=== PATIENT | female | born 1965 | race Caucasian/White ===

== ENCOUNTER 2021-11-13 07:26 | Outpatient (REF) | payer MEDICAID, SELFPAY ==
[2021-11-13 08:00] LABS: MANUAL DIFF FLAG NO
[2021-11-13 08:44] LABS: Basophils Percent Auto 0.6 % (0-2); Eosinophils Absolute Auto 0.1 X10*3/uL (0.0-0.4); Hematocrit 40.4 % (37.0-47.0); Hemoglobin 13.2 g/dl (12.0-16.0); Imm Gran Abs Auto 0.02 X10*3/uL (0.00-0.03); Imm Gran Pct Auto 0.3 % (0.0-0.4); Lymphocytes Absolute Auto 1.9 X10*3/uL (1.2-4.9); Lymphocytes Percent Auto 27.3 % (20-40); Mean Corpuscular HGB Conc 32.7 g/dl (31.0-35.0); Mean Corpuscular Hemoglobin 27.8 pg (27.0-33.0); Mean Corpuscular Volume 85.2 fL (80.0-98.0); Monocytes Absolute Auto 0.6 X10*3/uL (0.1-1.2); Monocytes Percent Auto 7.9 % (2-11); Neutrophils Absolute Auto 4.4 x10*3/uL (2.0-8.3); Neutrophils Percent Auto 61.9 % (45-73); Platelet Count 284 X10*3/uL (160-400); Red Blood Count 4.74 X10*6/uL (4.20-5.50); Red Cell Distribution Width 13.5 % (11.0-16.0); White Blood Count 7.1 X10*3/uL (4.8-10.8)
[2021-11-13 09:02] LABS: Estimated Average Glucose 186 mg/dL; Hemoglobin A1c % 8.1 %
[2021-11-13 09:08] LABS: Alanine Aminotransferase 34 U/L (0-31); Albumin Level 3.9 g/dL (3.5-5.0); Alkaline Phosphatase 92 U/L (39-117); Anion Gap 15 (12-20); Aspartate Amino Transferase 15 U/L (5-31); Bilirubin Direct 0.2 mg/dL (0.0-0.5); Bilirubin Total 0.6 mg/dL (0.0-1.0); Blood Urea Nitrogen 17 mg/dL (9-16); Carbon Dioxide 25 mmol/L (22-29); Chloride 104 mmol/L (96-108); Cholesterol 153 mg/dL; Estimated Glomerular Filt Rate > 60; Glucose Random 174 mg/dL (60-115); HDL Cholesterol 49 mg/dL; LDL Cholesterol Calculated 89 mg/dl; Potassium 4.6 mmol/L (3.3-5.1); Sodium 139 mmol/L (135-145); Total Protein 7.2 g/dL (6.5-8.0); Triglycerides 77 mg/dL
[2021-11-13 09:30] LABS: Free T4 (Free Thyroxine) 0.93 ng/dL (0.71-1.85); Thyroid Stimulating Hormone 3.18 uIU/mL (0.32-4.0); Vitamin D 25-OH Total 19.4 ng/mL (>30)
[2021-11-13 11:10] LABS: Creatinine Urine 166.59 mg/dL; Microalbum/Creatinine Ratio Ur 6.6 ug/mg cr
[2021-11-13 12:03] LABS: CT PCR NOT DETECTED (Not Detect.); NG PCR NOT DETECTED (Not Detect.)
[2021-11-15 07:44] LABS: Syphilis Screen Nonreactive (Nonreactive)
[2021-11-15 07:51] LABS: HIV AB/AG Nonreactive (Nonreactive); HIV Num 1 0.06 S/CO (0.00-0.99); ~HepC Num1 0.13 S/CO (0.00-0.79); ~Hepatitis C Antibody Nonreactive (Nonreactive)
== END 2021-11-13 07:27 | disposition home or self-care (01) ==
LOC: HO.LAB 07:26
PROVIDERS: PCP Family Medicine; Visit Provider Family Medicine
DX: Z00.00 Encounter for general adult medical examination without abnormal findings (principal); E11.9 Type 2 diabetes mellitus without complications; E78.5 Hyperlipidemia, unspecified; I10 Essential (primary) hypertension
CPT/HCPCS: 80048; 80061; 80076; 82043; 82306; 83036; 84439; 84443; 85025; 86780; 86803; 87389; 87491; 87591

== ENCOUNTER → 2021-11-24 14:45 | Outpatient (BNVA) | payer MEDICAID, SELFPAY | PROVIDERS: PCP Family Medicine; Visit Provider Surgery | DX: D17.24 Benign lipomatous neoplasm of skin and subcutaneous tissue of left leg (principal) | CPT/HCPCS: 99202 ==

== ENCOUNTER 2021-12-07 09:32 | Day surgery (SDC) | payer MEDICAID, SELFPAY ==
[2021-12-02 11:03] VITALS: BMI 33.8
--- NOTE | 2021-12-06 09:41 | P.CONAN_ITS ---
Documented by User: Malissa Gabriel NP 12/06/21 09:43 HPI - Anesthesia Eval Consult details Narrative: 56yo F for Left Excision Lipoma thigh PMFSH Active Problems Active Problems: All Active Problems (Updated 11/24/21 @ 15:17 by Zechariah Howard MD) Lipoma of left thigh (Acute) Hypertension (Acute) Diabetes mellitus (Acute) Past Medical History Medical History Diabetes mellitus Hypertension Lipoma of left thigh Family History Family History Other Diabetes mellitus Surgical History Surgical History H/O wrist surgery Social History Social History Alcohol intake: current Alcohol intake frequency: holidays/special occasions only Patient Tobacco Use Status: Former Tobacco user Tobacco use type: Cigarette Years Smoked: 3 Smoked in Last 30 Days: No Use of substances other than those prescribed or required for medical reasons: No Are you DNR?: No Advance Directives: No Advance Directives Information Provided: Yes Meds Allergies Allergy/AdvReac Type Severity Reaction Status Date / Time No Known Allergies Allergy Unverified 11/24/21 14:53 Home Medications Medication Instructions Recorded Confirmed Last Taken Type alcohol swabs (Alcohol Prep Pads) 1 pad topical QID diabetes mellitus 11/24/21 12/07/21 Unknown History blood sugar diagnostic (FreeStyle #10 ea 11/24/21 11/24/21 Unknown History Lite Strips) cholecalciferol (vitamin D3) 50 50 mcg PO DAILY 11/24/21 12/07/21 Unknown History mcg (2,000 unit) capsule dulaglutide 1.5 mg/0.5 mL 1.5 mg subcut QWEEK 11/24/21 12/07/21 12/05/21 History subcutaneous pen injector (Trulicity) famotidine 20 mg tablet 20 mg PO NEEDED PRN Acid Reflux 11/24/21 12/07/21 Unk nown History fluticasone propionate 50 2 spray intranasal DAILY 11/24/21 12/07/21 Unknown History mcg/actuation nasal spray,suspension insulin glargine 100 unit/mL (3 18 unit subcut QAM 11/24/21 12/07/21 12/06/21 07:00 History mL) subcutaneous pen (Lantus Solostar U-100 Insulin) lancets 28 gauge (FreeStyle #100 ea 11/24/21 11/24/21 Unknown History Lancets) lisinopril 10 mg tablet 10 mg PO DAILY 11/24/21 12/07/21 Unknown History pen needle, diabetic 32 gauge x #50 ea 11/24/21 11/24/21 Unknown History (BD Floresita 2nd Gen Pen Needle) rosuvastatin 5 mg tablet 5 mg PO DAILY 11/24/21 12/07/21 Unknown History Exam Exam Date and Time: December 06, [id number] Height,Weight and Vital Signs: Height 5 ft 3 in Weight 86.636 kg Pertinent Lab Results Pertinent Lab Results: Laboratory Tests 11/13/21 11/13/21 07:54 07:54 WBC 7.1 Hgb 13.2 Hct 40.4 Plt Count 284 Sodium 139 Potassium 4.6 Chloride 104 Carbon Dioxide 25 BUN 17 H Creatinine 0.83 Assessment and Plan Assessment Anesthesia Assessment: Chart Reviewed Documented by User: Yareli Sapp MD 12/07/21 12:52 [facility] Past Medical History Medical History Diabetes mellitus Hypertension Lipoma of left thigh Family History Family History Other Diabetes mellitus Surgical History Surgical History H/O wrist surgery History of Problems with Anesthesia: No Social History Social History Alcohol intake: current Alcohol intake frequency: holidays/special occasions only Patient Tobacco Use Status: Former Tobacco user Tobacco use type: Cigarette Years Smoked: 3 Smoked in Last 30 Days: No Use of substances other than those prescribed or required for medical reasons: No Are you DNR?: No Advance Directives: No Advance Directives Information Provided: Yes Meds Allergies Allergy/AdvReac Type Severity Reaction Status Date / Time No Known Allergies Allergy Unverified 11/24/21 14:53 Home Medications Medication Instructions Recorded Confirmed Last Taken Type alcohol swabs (Alcohol Prep Pads) 1 pad topical QID diabetes mellitus 11/24/21 12/07/21 Unknown History blood sugar diagnostic (FreeStyle #10 ea 11/24/21 11/24/21 Unknown History Lite Strips) cholecalciferol (vitamin D3) 50 50 mcg PO DAILY 11/24/21 12/07/21 Unknown History mcg (2,000 unit) capsule dulaglutide 1.5 mg/0.5 mL 1.5 mg subcut QWEEK 11/24/21 12/07/21 12/05/21 History subcutaneous pen injector (Trulicity) famotidine 20 mg tablet 20 mg PO NEEDED PRN Acid Reflux 11/24/21 12/07/21 Unknown History fluticasone propionate 50 2 spray intranasal DAILY 11/24/21 12/07/21 Unknown History mcg/actuation nasal spray,suspension insulin glargine 100 unit/mL (3 18 unit subcut QAM 11/24/21 12/07/21 12/06/21 07:00 History mL) subcutaneous pen (Lantus Solostar U-100 Insulin) lancets 28 gauge (FreeStyle #100 ea 11/24/21 11/24/21 Unknown History Lancets) lisinopril 10 mg tablet 10 mg PO DAILY 11/24/21 12/07/21 Unknown History pen needle, diabetic 32 gauge x #50 ea 11/24/21 11/24/21 Unknown History (BD Floresita 2nd Gen Pen Needle) rosuvastatin 5 mg tablet 5 mg PO DAILY 11/24/21 12/07/21 Unknown History Exam Airway Mallampati Class: II TM Dist: >3cm Neck ROM: Full Loose/Missing/Broken Teeth: No Heart: RRR Lungs: CTA Assessment and Plan Assessment Anesthesia Assessment: Anesthesia Plan Discussed Final Anesthetic Review History of Problems with Anesthesia: No NPO: Yes ASA Class: II Final Preanesthetic Review: Meds/Allgs Chart Reviewed, Consent Obtained/Reviewed and Anes Risks/Benef Reviewed Patient Risk: Low Procedure Risk: Low Anesthetic Plan Anesthetic Plan: GA Disposition: Standard PACU
[2021-12-07] VITALS (8 sets, daily range): BP systolic 87–159; BP diastolic 56–88; PULSE 98–103; RESP 16–20; TEMP 36.2–36.4; O2SAT 93–98; BMI 33.6
[2021-12-07 10:04] LABS: Glucose, Whole Blood 136 mg/dL (60-115)
[2021-12-07] MEDS: Lactated Ringers 1,000 ML 100 ML IVCONT (10:21)
--- NOTE | 2021-12-07 13:16 | MHC.SHP ---
Pre-Procedural Eval Section A Date of Service: 12/07/21 The patient is an INPATIENT: No Changes since office visit: No Cold of Flu in the past 2 weeks, No New Medical Problems, No Changes in Medication and No Patient answered all questions The History & Physical has been completed within 30 days and I have reviewed it.: Yes Section B Chief Complaint: Benign lipomatous neoplasm of skin and subcutaneou Allergies: Allergies Allergy/AdvReac Type Severity Reaction Status Date / Time No Known Allergies Allergy Unverified 11/24/21 14:53 Plan I have reviewed the history and physical and performed a pertinent physical examination on my patient. No changes have occurred unless specified.
--- NOTE | 2021-12-07 14:04 | W.PM.OPN ---
Operative Note Operative Note Date of Service: 12/07/21 Narrative: Preop diagnosis: Lipoma, left medial thigh Postop diagnosis: The same Procedure: Excision of lipoma, left medial thigh under anesthesia Surgeon: Zechariah Howard MD internal medicine physician assistant: LACI Nguyen The patient is a 56-year-old female who wanted a lipoma on the left medial thigh removed. She says that this has been bothering her because of increase in size and discomfort whenever she is ambulating. She has this vague lipomatous mass on the left medial thigh, about initially about 6-7 cm in size. She understood technique of excision under anesthesia and she was aware of the risks, benefits, and alternatives. She was brought to the operating room placed in supine position with left like abduct that expose the medial aspect of the thigh. She was under general anesthesia via laryngeal mask airway. The area of the lipomas prepped and draped in the usual sterile fashion. A surgical time-out was done. I infiltrated the planned line of incision with lidocaine 1%. I made the incision using blade 15 and this was carried down through the full-thickness of the skin and subcutaneous fat using electrocautery until I saw what appeared to be lipomatous tissue. Sharply dissected this lipomatous tissue off the rest of the subcutaneous layer. These margins were not well-defined. I sent this lipomatous tissue as specimen. The lipoma actually measured more about close to 5 cm in diameter. I irrigated the area of excision. I reapposed the subcutaneous layer with Dexon 3-0 interrupted sutures. Skin closure was achieved with Dexon 4-0 subcuticular running stitch. I infiltrated the area with Marcaine 0.5% for postop analgesia. Dressings were applied and the procedure was completed. The patient tolerated procedure well. There were no immediate complications. Initial and final counts of sponges and instruments were correct. Estimated blood loss about 10 cc The patient was extubated without difficulty and transferred to the recovery room with stable vital signs.
[2021-12-07] MEDS: Acetaminophen 325 MG TABLET 650 MG PO (15:20)
== END 2021-12-07 16:00 | disposition home or self-care (01) ==
PROVIDERS: PCP Family Medicine; Visit Provider Surgery
PROC: (CPT 27337; principal; 2021-12-07 11:30)
DX: D17.24 Benign lipomatous neoplasm of skin and subcutaneous tissue of left leg (principal); E11.9 Type 2 diabetes mellitus without complications; I10 Essential (primary) hypertension; Z79.4 Long term (current) use of insulin; Z79.899 Other long term (current) drug therapy; Z87.891 Personal history of nicotine dependence
CPT/HCPCS: 27337; 82947; 88304; J0690; J1170; J2250; J2795; J3010

== ENCOUNTER 2022-03-25 09:54 | Outpatient (REF) | payer MEDICAID, SELFPAY ==
--- NOTE | ~2022-03-25 | US_ITS ---
EXAMINATION: US ABDOMEN COMPLETE CLINICAL INFORMATION: Epigastric pain. COMPARISON: None TECHNIQUE: Real-time imaging of the abdominal viscera. FINDINGS: PANCREAS: Normal. ABDOMINAL AORTA: The proximal, mid, and distal segments are normal in caliber. INFERIOR VENA CAVA: Visualized portions are normal. LIVER: The liver is normal in size. The liver contour is normal. There is diffuse increased liver parenchymal echogenicity, consistent with hepatic steatosis. No focal hepatic lesion. There is no intrahepatic biliary duct dilatation seen. GALLBLADDER: The gallbladder is physiologically distended. A few large gallstones are present measuring about 1.6 cm. No evidence of gallbladder wall thickening or pericholecystic fluid. COMMON BILE DUCT: Normal in caliber measuring 0.3 cm in diameter. RIGHT KIDNEY: No hydronephrosis or renal calculi. The kidney measures 10.8 cm in maximum dimension. There is a right lower pole 1 cm benign Bosniak class I cyst which needs no additional imaging or follow-up. No solid renal masses. LEFT KIDNEY: Normal. No hydronephrosis. No renal calculi or focal parenchymal lesions. The kidney measures 10.1 cm in maximum dimension. SPLEEN: Normal. The spleen measures 8.6 cm in maximum dimension. FREE FLUID: None. US/US abdomen complete IMPRESSION: 1. Cholelithiasis without evidence of cholecystitis. 2. Hepatic steatosis.
== END 2022-03-25 09:55 | disposition home or self-care (01) ==
LOC: HO.US 09:54
PROVIDERS: PCP Family Medicine; Visit Provider Family Medicine
DX: R10.13 Epigastric pain (principal)
CPT/HCPCS: 76700

== ENCOUNTER → 2022-05-23 10:54 | Outpatient (BNVA) | payer OTHER, MEDICAID, SELFPAY | PROVIDERS: PCP Family Medicine; Visit Provider Surgery | DX: K80.20 Calculus of gallbladder without cholecystitis without obstruction (principal) | CPT/HCPCS: 99212 ==

== ENCOUNTER 2022-06-04 10:39 | Outpatient (REF) | payer OTHER, MEDICAID, SELFPAY ==
[2022-06-04 10:53] LABS: MANUAL DIFF FLAG NO
[2022-06-04 11:30] LABS: Basophils Absolute Auto 0.1 X10*3/uL (0.0-0.2); Basophils Percent Auto 0.7 % (0-2); Eosinophils Absolute Auto 0.1 X10*3/uL (0.0-0.4); Eosinophils Percent Auto 1.5 % (0-4); Hematocrit 42.1 % (37.0-47.0); Hemoglobin 13.5 g/dl (12.0-16.0); Imm Gran Abs Auto 0.02 X10*3/uL (0.00-0.03); Imm Gran Pct Auto 0.2 % (0.0-0.4); Lymphocytes Absolute Auto 2.1 X10*3/uL (1.2-4.9); Lymphocytes Percent Auto 25.7 % (20-40); Mean Corpuscular HGB Conc 32.1 g/dl (31.0-35.0); Mean Corpuscular Hemoglobin 26.9 pg (27.0-33.0); Mean Platelet Volume 10.4 fL (9.4-12.3); Monocytes Absolute Auto 0.6 X10*3/uL (0.1-1.2); Monocytes Percent Auto 7.1 % (2-11); Neutrophils Absolute Auto 5.2 x10*3/uL (2.0-8.3); Neutrophils Percent Auto 64.8 % (45-73); Platelet Count 289 X10*3/uL (160-400); Red Blood Count 5.01 X10*6/uL (4.20-5.50); Red Cell Distribution Width 13.2 % (11.0-16.0); White Blood Count 8.1 X10*3/uL (4.8-10.8)
== END 2022-06-04 10:40 | disposition home or self-care (01) ==
LOC: HO.LAB 10:39
PROVIDERS: PCP Family Medicine; Visit Provider Family Medicine
DX: R10.13 Epigastric pain (principal)
CPT/HCPCS: 36415; 85025

== ENCOUNTER 2022-07-25 07:46 | Outpatient (REF) | payer OTHER, MEDICAID, SELFPAY ==
--- NOTE | ~2022-07-25 | US_ITS ---
EXAMINATION: US ABDOMEN COMPLETE CLINICAL INFORMATION: Epigastric pain. COMPARISON: Ultrasound abdomen complete 03/25/2022. TECHNIQUE: Real-time imaging of the abdominal viscera. FINDINGS: PANCREAS: Visualized portions of pancreas are normal in appearance. ABDOMINAL AORTA: The proximal, mid, and distal segments are normal in caliber. INFERIOR VENA CAVA: Visualized portions are normal. LIVER: The liver is normal in size. The liver contour is normal. Liver echogenicity is increased diffusely. No focal hepatic lesion. There is no intrahepatic biliary duct dilatation seen. GALLBLADDER: The gallbladder is physiologically distended. Several gallstones are noted. There is no gallbladder wall thickening or pericholecystic fluid appreciated. Negative sonographic Landis's sign. COMMON BILE DUCT: Normal in caliber measuring 0.6 cm in diameter. RIGHT KIDNEY: 1.2 cm simple appearing midpole cyst for which no follow-up imaging is usually warranted. No hydronephrosis or renal calculi. The kidney measures 11.0 cm in maximum dimension. LEFT KIDNEY: Normal. No hydronephrosis. No renal calculi or focal parenchymal lesions. The kidney measures 11.1 cm in maximum dimension. SPLEEN: Normal. The spleen measures 9.7 cm in maximum dimension. FREE FLUID: None. US/US abdomen complete IMPRESSION: 1. Cholelithiasis. No other sonographic evidence to suggest acute cholecystitis. 2. Diffusely increased liver echogenicity. This is a nonspecific finding but most suggestive of hepatic steatosis. Correlation with liver enzymes recommended.
== END 2022-07-25 07:47 | disposition home or self-care (01) ==
LOC: HO.US 07:46
PROVIDERS: PCP Family Medicine; Visit Provider Family Medicine
DX: R10.13 Epigastric pain (principal)
CPT/HCPCS: 76700

== ENCOUNTER 2022-08-18 13:09 | Outpatient (REF) | payer MEDICAID, SELFPAY ==
[2022-08-18 16:25] LABS: Alanine Aminotransferase 37 U/L (0-31); Albumin Level 4.3 g/dL (3.5-5.0); Alkaline Phosphatase 96 U/L (39-117); Anion Gap 13 (12-20); Aspartate Amino Transferase 22 U/L (5-31); Bilirubin Total 0.6 mg/dL (0.0-1.0); Blood Urea Nitrogen 17 mg/dL (9-16); Calcium 9.7 mg/dL (8.4-10.2); Carbon Dioxide 27 mmol/L (22-29); Chloride 105 mmol/L (96-108); Estimated Glomerular Filt Rate > 60; Glucose Random 115 mg/dL (60-115); Potassium 4.6 mmol/L (3.3-5.1); Sodium 140 mmol/L (135-145); Total Protein 7.7 g/dL (6.5-8.0)
[2022-08-19 12:25] LABS: H Pylori Breath Test Negative (Negative)
== END 2022-08-18 13:10 | disposition home or self-care (01) ==
LOC: HO.LAB 13:09
PROVIDERS: PCP Family Medicine; Referring Provider Family Medicine; Visit Provider Nurse Practitioner
DX: R10.10 Upper abdominal pain, unspecified (principal)
CPT/HCPCS: 36415; 80053; 83013; 99212

== ENCOUNTER → 2022-09-26 07:42 | Outpatient (REF) | payer MEDICAID, SELFPAY ==
--- NOTE | ~2022-09-26 | NM_ITS ---
EXAMINATION: BILIARY TRACT IMAGING STUDY WITH CCK CLINICAL INFORMATION: Upper abdominal pain, unspecified.. COMPARISON: Abdominal ultrasound done on 07/25/2022.. TECHNIQUE: Serial gamma scintillation camera images were obtained over the abdomen for a total observation period of 60 minutes following the intravenous administration of 5 mCi Tc-99m mebrofenin. FINDINGS: There is good concentration of activity in the liver by 5 minutes post injection. Biliary activity is visualized by 7 minutes. The gallbladder is well visualized by 15 minutes. Small bowel is well visualized by 15 minutes. At 60 minutes post radiopharmaceutical injection, a 30-minute infusion of 1.8 micrograms Sincalide was then begun and an additional 40 minutes of images were obtained. There is no emptying of the gallbladder. By the end of the study there is good clearance of activity from the liver and visualization of diffuse small bowel activity. The calculated gallbladder ejection fraction is 0% (normal gallbladder ejection fraction is greater than 35%). NM/NM hepatobiliary w pharm IMPRESSION: Visualization of the gallbladder is evidence of a patent cystic duct and strong evidence against the diagnosis of acute cholecystitis. The common bile duct is patent. Gallbladder emptying and ejection fraction are abnormal showing no evidence of any significant contraction/emptying at 30 minutes post CCK injection images. Liver function appears normal.
== END ==
LOC: HO.NUCMED 07:42
PROVIDERS: PCP Family Medicine; Visit Provider Nurse Practitioner
DX: R10.10 Upper abdominal pain, unspecified (principal)
CPT/HCPCS: 78227; A9537; J2805

== ENCOUNTER 2022-10-05 08:13 | Outpatient (AMB) | payer MEDICAID, SELFPAY ==
--- NOTE | 2022-10-05 08:16 | MHC.OFFVIS ---
Intake Intake Visit Reasons: 6 weeks f/u abd pain Allergies No Known Allergies Allergy (Verified 05/23/22 11:14) HPI 6 weeks f/u abd pain HPI Details Assessment & Plan (1) Gallstones: ?Code(s): K80.20 - Calculus of gallbladder without cholecystitis without obstruction ?Plan: Her problems started about a year ago with a feeling soreness that starts in the area under the ribs and then seems to spread to her right side somewhat along the path of the colon. However, she does have some days without the pain, but when it comes it can last all day. It will happen 2-3 weeks out o.? f the month. The pain is 2-3/10. She also has a change in her stools, her normal was twice a day formed but now she is having several BM's a day at times formed and at times loose. This seems post prandial. She has HB and burping. No N/V. The HB is worsening. Her mother has stomach problems but she does not know the dx - she just knows that her mother can't eat certain foods. NO known food allergies. It may have started after she had COVID - can't remember any medication changes or diet changes. THEN SHE REMEMBERS THAT SHE STARTED TRULICITY ABOUT THE SAME TIME. She takes something that starts with an S and is chewable. and this is what she takes for HB.? This is likely simethicone.? She also has famotidine. She has never had a colonoscopy and is resistant to this - but may need to consider if we need EGD and for CRC screening. She does not know if there is a FHX of CRC - will ask her mom. In the meantime because she has a history of gallstones will get a HIDA scan and an H pylori test. Return office visit in 6 weeks. (2) Upper abdominal pain: ?Code(s): R10.10 - Upper abdominal pain, unspecified ? ? ? Orders: Orders NM hepatobiliary w pharm 08/18/22 R10.10 - Upper abd ominal pain, unspe cified ? Comprehensive Met. Panel 08/18/22 R10.10 - Upper abd ominal pain, unspe cified ? H Pylori Breath Te st 08/19/22 R10.10 - Upper abd ominal pain, unspe cified ? LABS: Laboratory Tests 08/18/22 08/18/22 14:38 Unknown Estimated GFR > 60 Total Bilirubin 0.6 AST 22 ALT 37 H Alkaline Phosphata se 96 H. pylori Breath T est Negative . HIDA SCAN 09/26/22? FINDINGS: There is good concentration of activity in the liver by 5 minutes post injection. Biliary activity is visualized by 7 minutes. The gallbladder is well visualized by 15 minutes. Small bowel is well visualized by 15 minutes. At 60 minutes post radiopharmaceutical injection, a 30-minute infusion of 1.8 micrograms Sincalide was then begun and an additional 40 minutes of images were obtained. There is no emptying of the gallbladder. By the end of the study there is good clearance of activity from the liver and visualization of diffuse small bowel activity. The calculated gallbladder ejection fraction is 0% (normal gallbladder ejection fraction is greater than 35%). NM/NM hepatobiliary w pharm IMPRESSION: Visualization of the gallbladder is evidence of a patent cystic duct and strong evidence against the diagnosis of acute cholecystitis. The common bile duct is patent. Gallbladder emptying and ejection fraction are abnormal showing no evidence of any significant contraction/emptying at 30 minutes post CCK injection images. Liver function appears normal. ? . TODAY'S VISIT She is doing MUCH BETTER!! Only random diarrhea not daily and her stomach is not painful. She credits the Creon for her improvement which was dramatic assume that she started the medication. I educate her about biliary dyskinesia and that the medicine may work for quite a while but we may reach a point where she needs to have the gallbladder removed. We review alarm signs and symptoms that would necessitate an ER visit. For now she is extremely happy with her GI regimen and agreeable to calling me if things change. ROV 3 mos. [facility] Medical History (Updated 10/05/22 @ 09:15 by BETSY Acosta) Diabetes mellitus Gallstones Hypertension Lipoma of left thigh Surgical History H/O wrist surgery Status post excision of lipoma (~12/07/21) Family History Other Diabetes mellitus Social History Alcohol intake: current Alcohol intake frequency: holidays/special occasions only Patient Tobacco Use Status: Former Tobacco user Tobacco use type: Cigarette Years Smoked: 3 Review of Systems Const Denies fatigue, Denies fever(s), Denies night sweats, Denies poor appetite and Denies weight loss ENT Reports Normal hearing present, Denies dental pain, Denies dysphagia, Denies hearing loss, Denies mouth pain, Denies odynophagia, Denies throat swelling, Denies tongue swelling and Reports other (Dentition adequate) Card Reports no additional complaints Resp Reports no additional complaints GI Denies abdominal pain, Denies melena, Denies bloating, Denies hematochezia, Reports constipation, Denies GI cramping, Denies dysphagia, Denies excessive flatus, Denies early satiety, Reports heartburn, Reports diarrhea, Denies nausea, Denies odynophagia, Denies vomiting and Denies hematemesis Skin/Breast Denies pruritus, Denies lesions, Denies rash and Denies jaundice Neuro Reports Normal hearing present and Denies Abnormal speech present Endo Denies fatigue Aller/Immun Denies throat swelling and Denies tongue swelling Physical Exam Const General: cooperative, no acute distress, well developed and well groomed Nutritional Appearance: well nourished and overweight Orientation/consciousness: oriented to person, oriented to place and oriented to time Limitations: No language barrier HEENT Head: Yes normocephalic and Yes atraumatic Eyes General: appearance normal, both eyes and all related structures Pupils: Equal, round and reactive pupils present Neck Neck: Yes normal visual inspection and Yes no lymphadenopathy Thyroid: Thyroid normal Resp Effort & Inspection: normal respiratory effort and able to speak in complete sentences Auscultation: clear to auscultation bilaterally Cardio Rate: regular rate Rhythm: regular rhythm Heart sounds: Normal, physiologic split S2 sound present Peripheral pulses: radial pulses present and posterior tibial pulses present GI Inspection: No distended, No Abdominal panniculus present and Yes obesity Palpation (GI): Soft to palpation, nontender, no guarding, not rigid and No hepatosplenomegaly present Percussion: Yes normal to percussion Auscultation: normal bowel sounds Rectal Exam - Female: deferred Skin General skin exam: no rashes or lesions noted, turgor normal, skin not dry, no jaundice, No spider nevi and no striae Rashes: no rashes Nails: normal Neuro General: oriented to person, oriented to place and oriented to time Cranial nerves: Yes Equal, round and reactive pupils present and Yes Normal hearing present Speech: No Abnormal speech present Extrem General: Yes normal to inspection, No clubbing, No cyanosis and No edema Psych Appearance: grossly normal and well kempt Mental Status: mental status grossly normal Speech and movement: Normal speech and movement present Affect: normal affect Attitude: cooperative Thought process: Normal thought process present and not confabulating Thought content: Normal thought content present Insight: Limited insight present (Psych) Judgement: Limited judgement present (Psych) Results Reviewed Results Reviewed: Laboratory Tests 08/18/22 08/18/22 14:38 Unknown Estimated GFR > 60 Total Bilirubin 0.6 AST 22 ALT 37 H Alkaline Phosphatase 96 H. pylori Breath Test Negative . HIDA SCAN 09/26/22? FINDINGS: There is good concentration of activity in the liver by 5 minutes post injection. Biliary activity is visualized by 7 minutes. The gallbladder is well visualized by 15 minutes. Small bowel is well visualized by 15 minutes. At 60 minutes post radiopharmaceutical injection, a 30-minute infusion of 1.8 micrograms Sincalide was then begun and an additional 40 minutes of images were obtained. There is no emptying of the gallbladder. By the end of the study there is good clearance of activity from the liver and visualization of diffuse small bowel activity. The calculated gallbladder ejection fraction is 0% (normal gallbladder ejection fraction is greater than 35%). NM/NM hepatobiliary w pharm IMPRESSION: Visualization of the gallbladder is evidence of a patent cystic duct and strong evidence against the diagnosis of acute cholecystitis. The common bile duct is patent. Gallbladder emptying and ejection fraction are abnormal showing no evidence of any significant contraction/emptying at 30 minutes post CCK injection images. Liver function appears normal. Assessment & Plan Assessment & Plan (1) Biliary dyskinesia: Comment: HIDA scan shows ejection fraction at 0 % Code(s): K82.8 - Other specified diseases of gallbladder Plan: She is doing MUCH BETTER!! Only random diarrhea not daily and her stomach is not painful. She credits the Creon for her improvement which was dramatic assume that she started the medication. I educate her about biliary dyskinesia and that the medicine may work for quite a while but we may reach a point where she needs to have the gallbladder removed. We review alarm signs and symptoms that would necessitate an ER visit.. She was also educated that avoiding high fat foods such as fried foods or fatty knee cuts also will limit her symptoms. She continues on famotidine as needed for heartburn and of course her Creon. She was also educated that instead of doing 4 times a day she could save 1 pill if she was going to [facility] a very [facility] and take 2 before that meal to aid digestion. For now she is extremely happy with her GI regimen and agreeable to calling me if things change. ROV 3 mos. (2) Gallstones: Comment: HIDA scan shows ejection fraction of 0% Code(s): K80.20 - Calculus of gallbladder without cholecystitis without obstruction (3) Upper abdominal pain: Code(s): R10.10 - Upper abdominal pain, unspecified (4) Irritable bowel syndrome with both constipation and diarrhea: Code(s): K58.2 - Mixed irritable bowel syndrome Medications: New famotidine 20 mg PO NEEDED PRN 30 tabs 6RF Acid Reflux Refilled [id number] 24,000-76,000 -120,000 unit (Creon) administer with meals and/or snacks 1 cap PO QID 30 days 120 caps 6RF K58.9 - Irritable bowel syndrome without diarrhea Coding Level of Care Code Est Pt Level 3 (17185) Diagnoses Biliary dyskinesia K82.8 Gallstones K80.20 Upper abdominal pain R10.10 Irritable bowel syndrome with both constipation and diarrhea K58.2
== END 2022-10-05 08:32 | disposition home or self-care (01) ==
PROVIDERS: PCP Family Medicine; Visit Provider Nurse Practitioner
DX: K82.8 Other specified diseases of gallbladder (principal); K80.20 Calculus of gallbladder without cholecystitis without obstruction; R10.10 Upper abdominal pain, unspecified; K58.2 Mixed irritable bowel syndrome
CPT/HCPCS: 99213

== ENCOUNTER → 2022-10-05 08:13 | Outpatient (BNVA) | payer MEDICAID, SELFPAY | PROVIDERS: PCP Family Medicine; Visit Provider Nurse Practitioner | DX: K82.8 Other specified diseases of gallbladder (principal); K80.20 Calculus of gallbladder without cholecystitis without obstruction; K58.2 Mixed irritable bowel syndrome; R10.10 Upper abdominal pain, unspecified | CPT/HCPCS: 99213 ==

== ENCOUNTER 2022-11-10 18:58 | Outpatient (REF) | payer MEDICAID, SELFPAY ==
[2022-11-10 19:59] LABS: Influenza A PCR NEGATIVE (Negative); Influenza B PCR NEGATIVE (Negative); Resp Syncy Virus RNA Qual PCR NEGATIVE (Negative); SARS COV2 PCR INHOUSE NEGATIVE (Negative)
== END 2022-11-10 18:59 | disposition home or self-care (01) ==
LOC: HO.HHCLNP 18:58
PROVIDERS: Visit Provider Emergency Medicine
DX: I10 Essential (primary) hypertension (principal); Z20.822 Contact with and (suspected) exposure to COVID-19
CPT/HCPCS: 0241U; 87070

== ENCOUNTER 2023-10-06 10:03 | Outpatient (REF) | payer MEDICAID, SELFPAY ==
[2023-10-06 11:37] LABS: Hematocrit 41.4 % (37.0-47.0); Hemoglobin 13.4 g/dl (12.0-16.0); Mean Corpuscular HGB Conc 32.4 g/dl (31.0-35.0); Mean Corpuscular Hemoglobin 27.3 pg (27.0-33.0); Mean Corpuscular Volume 84.3 fL (80.0-98.0); Platelet Count 258 X10*3/uL (160-400); Red Blood Count 4.91 X10*6/uL (4.20-5.50); White Blood Count 6.2 X10*3/uL (4.8-10.8)
[2023-10-06 11:49] LABS: Estimated Average Glucose 278 mg/dL; Hemoglobin A1c % 11.3 % (<6.0)
[2023-10-06 12:09] LABS: Alanine Aminotransferase 33 U/L (0-31); Alkaline Phosphatase 104 U/L (39-117); Anion Gap 13 (12-20); Aspartate Amino Transferase 20 U/L (5-31); Bilirubin Direct 0.3 mg/dL (0.0-0.5); Bilirubin Total 0.7 mg/dL (0.0-1.0); Blood Urea Nitrogen 14 mg/dL (9-16); Calcium 9.5 mg/dL (8.4-10.2); Carbon Dioxide 23 mmol/L (22-29); Chloride 107 mmol/L (96-108); Cholesterol 152 mg/dL (<200); Estimated Glomerular Filt Rate > 60; Glucose Random 196 mg/dL (60-115); HDL Cholesterol 62 mg/dL (>40); LDL Cholesterol Calculated 73 mg/dL (<100); Potassium 4.1 mmol/L (3.3-5.1); Sodium 139 mmol/L (135-145); Total Protein 7.3 g/dL (6.5-8.0); Triglycerides 86 mg/dL (<150)
[2023-10-06 12:19] LABS: Creatinine Urine 156.85 mg/dL; Microalbum/Creatinine Ratio Ur 10.8 ug/mg cr (<30)
[2023-10-06 12:22] LABS: Hepatitis A Antibody IgG Nonreactive (Nonreactive); ~Hepatitis A Antibody IgG 0.32 S/CO (0.00-0.99)
[2023-10-06 12:23] LABS: HBc Num1 0.31 S/CO (0.00-0.79); HIV AB/AG Nonreactive (Nonreactive); HIV Num 1 0.05 S/CO (0.00-0.99); Hepatitis B Core Antibody Nonreactive (Nonreactive)
[2023-10-06 12:24] LABS: HBS Num1 157.08 mIU/mL (0-7.99); HBsAGNum1 0.32 S/CO (0.00-0.99); Hepatitis B Surface Antigen Negative (Negative); ~HepC Num1 0.39 S/CO (0.00-0.79); ~Hepatitis B Surface Antibody REACTIVE (Nonreactive); ~Hepatitis C Antibody Nonreactive (Nonreactive)
[2023-10-06 12:27] LABS: Free T4 (Free Thyroxine) 0.97 ng/dL (0.71-1.85); Thyroid Stimulating Hormone 2.14 uIU/mL (0.32-4.0); Vitamin D 25-OH Total 36.1 ng/mL (>30)
[2023-10-06 13:19] LABS: CT PCR NOT DETECTED (Not Detect.); NG PCR NOT DETECTED (Not Detect.)
[2023-10-08 12:28] LABS: RPR Rapid Plasma Reagin NON-REACTIVE (NON-REACTIVE)
[2023-10-09 12:08] LABS: Alpha Fetoprotein 2.2 ng/mL
== END 2023-10-06 10:04 | disposition home or self-care (01) ==
LOC: HO.HHCL 10:03
PROVIDERS: Visit Provider Family Medicine
DX: Z00.00 Encounter for general adult medical examination without abnormal findings (principal); E11.9 Type 2 diabetes mellitus without complications; Z79.4 Long term (current) use of insulin; I10 Essential (primary) hypertension; E78.49 Other hyperlipidemia; K76.0 Fatty (change of) liver, not elsewhere classified; R10.13 Epigastric pain; K80.50 Calculus of bile duct without cholangitis or cholecystitis without obstruction
CPT/HCPCS: 36415; 80048; 80061; 80076; 82043; 82105; 82306; 82570; 83036; 84439; 84443; 85027; 86592; 86704; 86706; 86708; 86803; 87340; 87389; 87491; 87591

== ENCOUNTER 2024-08-23 09:59 | Outpatient (REF) | payer MEDICAID, SELFPAY ==
--- NOTE | ~2024-08-23 | XR_ITS ---
EXAMINATION: XR HIP, RIGHT CLINICAL INFORMATION: worsening R hip and knee pain COMPARISON: None available. TECHNIQUE: Two views of the right hip. FINDINGS: No acute cortical disruption or malalignment. No lytic or blastic lesions. Normal joint space, coxofemoral joint. XR/XR hip RT min 2V IMPRESSION: No acute fracture or dislocation. Negative x-ray. Electronically signed by: Aravind Urias MD 08/23/2024 10:34 AM EDT
--- NOTE | ~2024-08-23 | XR_ITS ---
EXAMINATION: XR KNEE, RIGHT CLINICAL INFORMATION: worsening R hip and knee pain COMPARISON: October 25, 2019 TECHNIQUE: AP oblique and lateral and sunrise view. of the right knee. FINDINGS: No acute cortical disruption or malalignment. No lytic or blastic lesion. No suprapatellar bursa joint effusion. No metallic or radiopaque foreign body. No subcutaneous emphysema. XR/XR knee RT 4V IMPRESSION: No acute fracture or dislocation. Negative x-ray. Electronically signed by: Aravind Urias MD 08/23/2024 10:34 AM EDT
--- OUTSIDE RECORDS SUMMARY | 2024-08-23 10:43 | XMS_ITS | Encounter Summary ---
Author Organization [employer] Address [address] [place] [address] [address] [place] [address] Care Team Providers Care Preparation Department Supervisor Name Role Phone Lashay Alcala DO Primary Care Provider + [phone] Reason for Visit * Reason Onset Date Comments Med Refill 12/18/2023 Encounter Details Date Type Department Care Team (Late st Contact Info) Description 12/18/2023 Refill [facility] [address] [place], [place] [phone] Lashay Alcala DO [address] [place] [address] Social History Tobacco Use Types Packs/Day Years Used Date Smoking Tobacco: Never Smokeless Tobacco: Never Alcohol Use Standard Drinks/Week Comments Yes 0 (1 standard drink = 0.6 oz pur e alcohol) sometimes wine Depression Answer Date Recorded Patient Health Questionnaire-9 Score 1 10/06/2023 Patient Health Questionnaire-9 Score 1 10/06/2023 Last PHQ-9: Questionnaire Data Not on file 0 10/06/2023 Housing Stability Answer Date Recorded What is your housing situation today? I have norman joce 10/06/[address] you li ve. Do you have problems with any of the following? None of the above 10/06/2023 Food Insecurity Answer Date Recorded Within the past 12 months, y ou worried that your food would run out before you got money to buy more: Never True 10/06/2023 Within the past 12 months,th e food you bought just didn't last and you didn't have enough money to get more: Never True Transportation Answer Date Recorded In the past 12 months, has l ack of transportation kept you from medical appts, meetings, work or from getting things needed for daily living? No 10/06/2023 Utilities Answer Date Recorded In the past 12 months, has t he electric, gas, oil or water company threatened to shut off services in your home? No 10/06/2023 Depression Answer Date Recorded Patient Health Questionnaire-2 Score 0 10/06/2023 Internet Access Answer Date Recorded Internet Access Q1 Yes 11/13/2023 Internet Access Q2 Not on file 11/13/2023 Comments Unknown Sex and Gender Information Value Date Recorded Sex Assigned at Female 01/10/2022 10:21 AM EDT Legal Sex Female 10:21 AM EDT Gender Identity Female 01/10/2022 10:21 AM EDT Sexual Orientation Lesbian or [place] 01/10/2022 10 :21 AM EDT documented as of this encounter Plan of Treatment Not on file documented as of this encounter Visit Diagnoses Not on filedocumented in this encounter Additional Health Concerns Assessment Noted Time PHQ-9 Depression Total Score: 1 10/06/19 24 9:15 AM EDT documented as of this encounter Care Teams Preparation Department Supervisor Relationship Specialty Start Date End Date Lashay Alcala DO [address] [place] [id number] PCP - General Family Medicine 02/12/11 documented as of this encounter
== END 2024-08-23 10:00 | disposition home or self-care (01) ==
LOC: HO.HHCX 09:59
PROVIDERS: Visit Provider Family Medicine
DX: M25.551 Pain in right hip (principal); M25.561 Pain in right knee; G89.29 Other chronic pain
CPT/HCPCS: 73502; 73564

== ENCOUNTER → 2024-08-23 10:00 | Outpatient (BNV) | payer MEDICAID, SELFPAY | PROVIDERS: Visit Provider Radiology Diagnostic Radiology | DX: M25.561 Pain in right knee (principal); M25.551 Pain in right hip | CPT/HCPCS: 73502; 73564 ==

== ENCOUNTER 2024-08-23 10:25 | Outpatient (REF) | payer MEDICAID, SELFPAY ==
[2024-08-23 11:13] LABS: Hematocrit 41.6 % (37.0-47.0); Hemoglobin 13.5 g/dl (12.0-16.0); Mean Corpuscular HGB Conc 32.5 g/dl (31.0-35.0); Mean Corpuscular Hemoglobin 27.2 pg (27.0-33.0); Mean Corpuscular Volume 83.9 fL (80.0-98.0); Mean Platelet Volume 10.4 fL (9.4-12.3); Platelet Count 275 X10*3/uL (160-400); Red Blood Count 4.96 X10*6/uL (4.20-5.50); Red Cell Distribution Width 13.5 % (11.0-16.0); White Blood Count 7.3 X10*3/uL (4.8-10.8)
[2024-08-23 11:22] LABS: Estimated Average Glucose 194 mg/dL; Hemoglobin A1c % 8.4 % (<6.0); Total Hemoglobin (HGBA1C) 3529.8239 umol/L
[2024-08-23 11:41] LABS: Alanine Aminotransferase 40 U/L (0-31); Albumin Level 4.3 g/dL (3.5-5.0); Alkaline Phosphatase 94 U/L (39-117); Anion Gap 10 (12-20); Aspartate Amino Transferase 27 U/L (5-31); Bilirubin Direct 0.2 mg/dL (0.0-0.5); Bilirubin Total 0.7 mg/dL (0.0-1.0); Blood Urea Nitrogen 12 mg/dL (9-16); Calcium 9.4 mg/dL (8.4-10.2); Carbon Dioxide 27 mmol/L (22-29); Chloride 106 mmol/L (96-108); Cholesterol 155 mg/dL (<200); Estimated Glomerular Filt Rate > 60; Glucose Random 115 mg/dL (60-115); HDL Cholesterol 52 mg/dL (>40); LDL Cholesterol Calculated 88 mg/dL (<100); Potassium 4.4 mmol/L (3.3-5.1); Sodium 139 mmol/L (135-145); Total Protein 7.4 g/dL (6.5-8.0); Triglycerides 77 mg/dL (<150)
[2024-08-23 12:00] LABS: Free T4 (Free Thyroxine) 1.02 ng/dL (0.71-1.85); Vitamin D 25-OH Total 30.8 ng/mL (>30)
[2024-08-23 12:53] LABS: Creatinine Urine 140.54 mg/dL; Microalbum/Creatinine Ratio Ur 6.4 ug/mg cr (<30)
[2024-08-23 13:13] LABS: CT PCR NOT DETECTED (Not Detect.); NG PCR NOT DETECTED (Not Detect.)
[2024-08-26 04:29] LABS: HBS Num1 159.32 mIU/mL (0-7.99); HBc Num1 0.14 S/CO (0.00-0.79); HBsAGNum1 0.37 S/CO (0.00-0.99); HIV AB/AG Nonreactive (Nonreactive); HIV Num 1 0.06 S/CO (0.00-0.99); Hepatitis B Core Antibody Nonreactive (Nonreactive); Hepatitis B Surface Antigen Negative (Negative); ~HepC Num1 0.15 S/CO (0.00-0.79); ~Hepatitis B Surface Antibody REACTIVE (Nonreactive); ~Hepatitis C Antibody Nonreactive (Nonreactive)
[2024-08-26 11:48] LABS: RPR Rapid Plasma Reagin NON-REACTIVE (NON-REACTIVE)
[2024-08-26 12:43] LABS: Alpha Fetoprotein 1.9 ng/mL
[2024-08-30 08:35] LABS: Hepatitis A Antibody IgG Nonreactive (Nonreactive); ~Hepatitis A Antibody IgG 0.27 S/CO (0.00-0.99)
== END 2024-08-23 10:26 | disposition home or self-care (01) ==
LOC: HO.HHCL 10:25
PROVIDERS: Visit Provider Family Medicine
DX: Z00.00 Encounter for general adult medical examination without abnormal findings (principal); M25.561 Pain in right knee; G89.29 Other chronic pain; M25.551 Pain in right hip; R10.13 Epigastric pain; K76.0 Fatty (change of) liver, not elsewhere classified; E78.49 Other hyperlipidemia; Z79.4 Long term (current) use of insulin; E11.9 Type 2 diabetes mellitus without complications; I10 Essential (primary) hypertension
CPT/HCPCS: 80048; 80061; 80076; 82043; 82105; 82306; 82570; 83036; 84439; 84443; 85027; 86592; 86704; 86706; 86708; 86803; 87340; 87389; 87491; 87591